=== PATIENT | male | born 1930 | race Caucasian/White ===

== ENCOUNTER → 2016-12-24 | Outpatient (CLI) | payer MEDICARE, BC | END | disposition home or self-care (01) | LOC: GMAM 10:36 | PROVIDERS: ATTEND Family Medicine | DX: Z12.5 Encounter for screening for malignant neoplasm of prostate (principal) ==

== ENCOUNTER → 2017-01-03 | Outpatient (CLI) | payer MEDICARE, BC ==
--- NOTE | 2017-01-04 13:13 | CT ---
EXAM DESCRIPTION: Abdomen t/Pelvis w/o Contrast CLINICAL HISTORY: 86 years, 86 years, Male, Male, ABD PAIN COMPARISON: March 01, 2016. TECHNIQUE: CT of the abdomen and pelvis is performed according to our non contrast protocol This exam was performed according to our departmental dose-optimization program, which includes automated exposure control, adjustment of the mA and/or kV according to patient size and/or use of iterative reconstruction technique. l FINDINGS: The lung bases are clear. A large retrocardiac hiatal hernia and mild basilar fibrotic or atelectatic lung disease is present bilaterally. Benign cyst in the central liver is present with no other gross abnormalities on noncontrast imaging with a small normal spleen noted. The gallbladder is surgically absent and the unenhanced pancreas is normal in appearance. Right kidney is normal in appearance and the left kidney demonstrates an oval approximate 4 cm cyst projecting from the lateral margin with stable minimal calcification, all unchanged from prior study. The adrenal glands and retroperitoneum are normal without mass or adenopathy. The IVC is normal and the aorta has a normal size and contour. The stomach, small and large bowel, peritoneal cavity, mesentery, and abdominal wall are normal. The bladder has no focal mass or stone evident. The pelvis demonstrates no fluid collection or abnormal mass. Moderate prostatic hypertrophy is noted. Age appropriate degenerative changes in the spine and pelvis are noted. A right total hip prosthesis is noted and deformity of the right iliac crest consistent with old injury or surgery is evident with a defect in the right iliac crest with stable herniation of mesenteric or retroperitoneal fat through this defect into the gluteal region but unchanged from prior study. A small fat-containing umbilical hernia is also noted. IMPRESSION: 1. Essentially stable examination in comparison to prior study with large retrocardiac hiatal hernia, benign hepatic cyst and left renal cyst. 2. Old right hip replacement and deformity of the right iliac crest with herniation of retroperitoneal fat through a notch in the iliac crest into the gluteal region but unchanged from 2016. 3. Surgical absence of the gallbladder and mild diverticulosis of the left colon. Electronically signed by: Artemio West MD 01/04/2017 1:12 PM CDT
== END | disposition home or self-care (01) ==
LOC: CT 09:36
PROVIDERS: ATTEND Family Medicine
DX: R10.9 Unspecified abdominal pain (principal)

== ENCOUNTER 2017-02-13 05:50 | Day surgery (SDC) | payer MEDICARE, BC ==
[2017-02-13] MEDS ORDERED: LACTATED RINGERS 1,000 ML ONE (07:00)
[2017-02-13 09:34] VITALS: O2SAT 95
[2017-02-13] MEDS ORDERED: PROPOFOL 200 MG/20 ML VIAL IV ONE (10:00)
[2017-02-13 10:12] VITALS: BP 109/57; TEMP 97.8
--- NOTE | 2017-02-13 10:38 | OP ---
DATE OF PROCEDURE: 02/13/17 PREOPERATIVE DIAGNOSIS: 1. Epigastric pain. POSTOPERATIVE DIAGNOSIS: 1. Large hiatal hernia with reflux. 2. No evidence of Lewis's esophagus or esophagitis. PROCEDURE: 1. Esophagogastroduodenoscopy and biopsy. SURGEON: Colin Sinclair MD. SEDATION: Monitored anesthesia care. FINDINGS: With the patient under sedation, the endoscope was introduced. The posterior pharynx is normal. The proximal esophagus is unremarkable. There is no evidence of Lewis's esophagus or esophagitis. The EG junction is at 30 cm from the gumline. There is a large hiatal hernia present below it. There is no evidence of any axial twist. There is a large hernia pouch. There is no ulceration within the hernia. There is minimal inflammation of the distal antrum. Biopsy obtained to exclude H. pylori. The rest of the stomach is totally normal, pylorus, duodenal bulb, first, second and third part of the duodenum unremarkable. The patient tolerated the procedure well. Normal esophagus inlet. The body of the esophagus unremarkable. EG junction at 40 cm from gumline. No hiatal hernia, ulceration, inflammation, or stricture. Normal cardia, fundus, body, antrum, and pylorus. Biopsy was obtained from the body to exclude gastritis. Clinically, there is no abnormality identified. Duodenal bulb, first, second and third part of the duodenum normal. IMPRESSION: 1. Large hiatal hernia. 2. Probable acid reflux. No accompanying esophagitis. RECOMMENDATION: 1. Antireflux measures. 2. Stay on proton pump inhibitor on daily basis. The patient can use proton pump inhibitor of choice depending on prescription cost. #[id number] cc: Artemio Lara MD [facility]
== END 2017-02-13 10:00 | disposition home or self-care (01) ==
LOC: AMB 05:50
PROVIDERS: ATTEND Internal Medicine Gastroenterology
DX: K21.9 Gastro-esophageal reflux disease without esophagitis (principal); K44.9 Diaphragmatic hernia without obstruction or gangrene; K31.9 Disease of stomach and duodenum, unspecified; I10 Essential (primary) hypertension; E66.9 Obesity, unspecified; Z68.31 Body mass index [BMI] 31.0-31.9, adult; Z79.899 Other long term (current) drug therapy
CPT/HCPCS: 00740; 43239; 88305; 88342; J3490; J7120

== ENCOUNTER 2017-06-23 18:16 | Emergency (ER) | payer MEDICARE, BC ==
[2017-06-23] MEDS ORDERED: KETOROLAC TROMETHAMINE INJ 30 MG/ML VIAL IV ONE (18:48)
--- NOTE | 2017-06-23 18:52 | ED.PDOC ---
History of Present Illness - General Chief Complaint: General Stated Complaint: left hip pain Time Seen by Provider: 06/23/17 18:41 Source: patient, RN notes reviewed, Vital Signs reviewed, family - Exam Limitations: no limitations - History of Present Illness Initial Comments: Patient comes in with c/o L hip and low back pain for 2-3 weeks. Pain is in his low back/lateral hip, across groin and into L testicle. Pain also goes down his left thigh. He did see the [facility] at the clinic who took an X-ray and told him he had arthritis. He did not take the Mobic but Ambrosio has been helping. Pain worsened today, felt like a knife was sticking in his groin. Denies and new/ different urinary symptoms. No change in bowel habits. Timing/Duration: getting worse - over past 2-3 weeks Severity: moderate Improving Factors: medication Worsening Factors: movement Associated Symptoms: denies symptoms Allergies/Adverse Reactions: Allergies NO KNOWN ALLERGY Allergy (Verified 06/23/17 18:41) Home Medications: Ambulatory Orders Ascorbic Acid [Vitamin C] 500 mg PO DAILY 02/01/13 Aspirin [Baby Aspirin] 81 mg PO HS 02/01/13 Calcium 600 mg PO DAILY 02/01/13 Clonazepam 1 mg PO HS 02/01/13 Cobalamine Combinations [B-12 1000 1000-400 Mcg] 1 tab PO DAILY 02/01/13 Dorzolamide HCl-Timolol Maleat [Cosopt] 1 drop BID 02/01/13 Dutasteride [Avodart] 0.5 mg PO DAILY 02/01/13 Escitalopram Oxalate [Lexapro] 10 mg PO DAILY 02/01/13 Glucosamine-Chondroitin [Cosamin Ds] 1 cap PO BID 02/01/13 Latanoprost [Xalatan] 1 drop HS 02/01/13 Metoprolol Succinate [Toprol Xl] 50 mg PO DAILY 02/01/13 Pantoprazole Sodium 40 mg PO DAILY 02/01/13 Vitamins A & D [Vitamin A & D 5000-400 Unit] 1 cap PO DAILY 02/01/13 Acetaminophen W/ Codeine [Tylenol W/ CODEINE #3] 1 ea PO Q6HR PRN #15 06/23/17 Review of Systems - Review of Systems Constitutional: States: no symptoms reported Respiratory: States: no symptoms reported Cardiology: States: no symptoms reported Gastrointestinal/Abdominal: States: no symptoms reported. Denies: abdominal pain, constipation, diarrhea Genitourinary: States: no symptoms reported. Denies: dysuria, frequency, pain Musculoskeletal: States: see HPI, back pain, joint pain - L hip Skin: States: no symptoms reported Neurological: States: no symptoms reported All other Systems: No Change from Baseline Past Medical History (General) - Patient Medical History Hx Seizures: No Hx Stroke: No Hx Asthma: No Hx of COPD: No Hx Cardiac Disorders: Yes Hx Congestive Heart Failure: No Hx Pacemaker: No Hx Hypertension: Yes Hx Diabetes: No Hx MRSA: No Surgical History: cholecystectomy - Vaccination History Hx Influenza Vaccination: Yes Hx Pneumococcal Vaccination: Yes - Social History Hx Tobacco Use: No Hx Alcohol Use: No Hx Substance Use: No Hx Substance Use Treatment: No Hx Depression: No Hx Physical Abuse: No Hx Emotional Abuse: No Family Medical History - Family History Mother Family History: Unknown Physical Exam - Physical Exam General Appearance: Alert, Comfortable, No apparent distress, Well Developed, Well Groomed, Well Hydrated, Well Nourished Respiratory: lungs clear, normal breath sounds, no respiratory distress, no accessory muscle use Cardiovascular/Chest: regular rate, rhythm, no edema, no gallop, no murmur Gastrointestinal/Abdominal: normal bowel sounds, soft, no organomegaly, no pulsatile mass, tenderness - LLQ and Suprapubic w/o guarding or rebound Rectal Exam: deferred Back Exam: normal inspection, no CVA tenderness, no vertebral tenderness Extremity: other - L hip: good ROM but some pain with ROM Neurologic: alert, normal mood/affect, oriented x 3 Skin Exam: normal color, warm/dry Comments: Vital Signs 06/23/17 18:26 Temperature 98.3 F Pulse Rate [ 65 Left Radial] Respiratory 20 Rate Blood Pressure 164/78 [Left Arm] O2 Sat by Pulse 95 Oximetry Progress - Progress Progress: 06/23/17 19:41 UA showed some blood so will get CT scan Patient reports no relief with Toradol. Will give Dilaudid 0.5mg IV 06/23/17 20:[address] shows no renal stone and no acute intra-abdominal process. - Results/Orders Results/Orders: Laboratory Tests 06/23/17 06/23/17 06/23/17 18:56 18:56 19:22 WBC 6.6 RBC 4.01 L Hgb 12.2 L Hct 36.7 L MCV 91.5 MCH 30.4 MCHC 33.3 RDW 15.4 H Plt Count 191 MPV 6.9 L Absolute Neuts (auto) 3.90 Absolute Lymphs (auto) 1.60 Absolute Monos (auto) 0.70 Absolute Eos (auto) 0.20 Absolute Basos (auto) 0.10 Neutrophils % 59.9 Lymphocytes % 24.8 Monocytes % 10.8 H Eosinophils % 3.6 Basophils % 0.9 Sodium 138 Potassium 3.8 Chloride 107 Carbon Dioxide 26 Anion Gap 8.8 L BUN 16 Creatinine 1.22 BUN/Creatinine Ratio 13.1 Random Glucose 104 Serum Osmolality 277.2 Calcium 8.3 L Total Bilirubin 0.4 AST 20 ALT 15 Alkaline Phosphatase 58 Serum Total Protein 5.9 L Albumin 3.2 Globulin 2.7 Albumin/Globulin Ratio 1.2 Urine Color Yellow Urine Appearance Clear Urine pH 6.0 Ur Specific [place] 1.015 Urine Protein Negative Urine Glucose (UA) Negative Urine Ketones Negative Urine Blood Trace-intact H Urine Nitrite Negative Urine Bilirubin Negative Urine Urobilinogen 1.0 Ur Leukocyte Esterase Negative Urine RBC 1-3 Urine WBC 0-1 Ur Epithelial Cells 0-1 Urine Bacteria 0 - EKG/XRAY/CT CT Ordered: Yes - Abd/Pel:No acute findings per Rad Departure - Departure Clinical Impression: Acute pain of left hip Osteoarthritis of left hip Qualifiers: Osteoarthritis type: primary Qualified Code(s): M16.12 - Unilateral primary osteoarthritis, left hip Time of Disposition: 20:43 Disposition: Discharge to Home or Self Care Condition: Good Departure Forms: ED Discharge - Pt. Copy, Patient Portal Self Enrollment Instructions: DI for Arthralgia Diet: resume usual diet Activity: increase activity as tolerated Referrals: Artemio Lara MD [Primary Care Provider] - 1-2 Weeks Prescriptions: Acetaminophen W/ Codeine [Tylenol W/ CODEINE #3] 1 ea PO Q6HR PRN #15 PRN Reason: Moderate To Severe Pain Home Medications: Ambulatory Orders Ascorbic Acid [Vitamin C] 500 mg PO DAILY 02/01/13 Aspirin [Baby Aspirin] 81 mg PO HS 02/01/13 Calcium 600 mg PO DAILY 02/01/13 Clonazepam 1 mg PO HS 02/01/13 Cobalamine Combinations [B-12 1000 1000-400 Mcg] 1 tab PO DAILY 02/01/13 Dorzolamide HCl-Timolol Maleat [Cosopt] 1 drop BID 02/01/13 Dutasteride [Avodart] 0.5 mg PO DAILY 02/01/13 Escitalopram Oxalate [Lexapro] 10 mg PO DAILY 02/01/13 Glucosamine-Chondroitin [Cosamin Ds] 1 cap PO BID 02/01/13 Latanoprost [Xalatan] 1 drop HS 02/01/13 Metoprolol Succinate [Toprol Xl] 50 mg PO DAILY 02/01/13 Pantoprazole Sodium 40 mg PO DAILY 02/01/13 Vitamins A & D [Vitamin A & D 5000-400 Unit] 1 cap PO DAILY 02/01/13 Acetaminophen W/ Codeine [Tylenol W/ CODEINE #3] 1 ea PO Q6HR PRN #15 06/23/17
[2017-06-23] MEDS ORDERED: HYDROmorphone HCL INJ 2 MG/ML VIAL IV ONE (19:41)
--- NOTE | 2017-06-23 20:22 | CT ---
EXAM DESCRIPTION: Abdoment/Pelvis w/o Contrast CLINICAL HISTORY: 86 years Male, Hematuria/L flank pain COMPARISON: 01/03/2017 TECHNIQUE: Contiguous axial CT images of the abdomen and pelvis were acquired without administration of intravenous contrast. Coronal and sagittal reformatted images are provided. This exam was performed according to our departmental dose-optimization program which includes use of Automated Exposure Control, adjustment of the mA and/or kV according to patient size and/or use of iterative reconstruction technique. FINDINGS: Chest base: Scarring or focal atelectasis at the lung bases. Moderate hiatal hernia. Coronary artery calcifications. Liver: Stable low-attenuation lesions of the right hepatic lobe, the larger lesion compatible with a simple cyst. Gallbladder: Surgically absent Spleen: Unremarkable. Adrenals: Unremarkable. Pancreas: Unremarkable. Right Kidney: No renal stones or hydronephrosis. Left Kidney: Partially exophytic cyst arising from the left mid kidney with a small peripheral calcification. No renal stones or hydronephrosis. Aorta and branch vessels: Moderate calcific atherosclerosis of the aortoiliac vessels. Lymph nodes: No lymphadenopathy. Bowels: No obstruction. Colon: Diffuse colonic diverticulosis. Appendix: Not clearly identified Peritoneum: No free air or free fluid. Pelvic organs: Mildly enlarged prostate. Bladder: No bladder stone. Small right bladder diverticulum. Bones and soft tissues: Right hip total arthroplasty. Old fractures of the right hemipelvis. IMPRESSION: No acute intra-abdominal abnormality. No renal stones or hydronephrosis. Moderate-sized hiatal hernia. Diffuse colonic diverticulosis. Electronically signed by: Vernon Schmidt MD 06/23/2017 8:20 PM CDT
[2017-06-23] MEDS ORDERED: ACETAMINOPHEN W/COD #3 TAB (ER Disp) PO ONE (20:43)
[2017-06-23 21:18] VITALS: BP 129/75; TEMP 97.6; O2SAT 91
== END 2017-06-23 21:25 | disposition home or self-care (01) ==
LOC: ER 18:16
DX: M16.12 Unilateral primary osteoarthritis, left hip (principal); I10 Essential (primary) hypertension; Z79.82 Long term (current) use of aspirin; Z79.899 Other long term (current) drug therapy
CPT/HCPCS: 36415; 74176; 80053; 81001; 85025; J1170; J1885

== ENCOUNTER → 2017-06-24 | Outpatient (CLI) | payer MEDICARE, BC ==
--- NOTE | 2017-06-24 12:48 | US ---
EXAM DESCRIPTION: Testicular CLINICAL HISTORY: 86 years Male, SCROTUM PAIN COMPARISON: None. FINDINGS: Testicular sonography with grayscale, color Doppler and spectral pulse Doppler evaluation was performed. The right testis is 3.6 x 2.3 x 2.6 cm and demonstrates normal vascularity. A moderate hydrocele is present. The epididymis is mildly enlarged at 1.1 x 1.6 x 1.2 cm. A bilobed or septated epididymal head cyst measuring 1.1 x 1.0 x 0.9 cm is present. No testicular masses are seen. The left testis is 3.3 x 2.4 x 2.9 cm. A very small hydrocele is present. A small simple 1 cm oval epididymal cyst is noted with the epididymis less prominent measuring 1.1 cm in maximal diameter. IMPRESSION: Moderate right and small left hydrocele with a small amount of debris noted in the left-sided hydrocele. Modest enlargement of the right epididymal head with upper normal range on the left with simple left epididymal head cyst and bilobed 1.1 cm epididymal head cyst on the right. Electronically signed by: Artemio West MD 06/24/2017 12:47 PM CDT
== END | disposition home or self-care (01) ==
LOC: US 11:38
PROVIDERS: ATTEND Physician Assistant
DX: N50.82 Scrotal pain (principal)

== ENCOUNTER → 2017-07-05 | Outpatient (CLI) | payer MEDICARE, BC ==
--- NOTE | 2017-07-06 01:52 | MRI ---
EXAM DATE: 07/05/2017 12:00 AM [employer]. PROCEDURE: MR LUMBAR SPINE WITHOUT IV CONTRAST. INDICATION: SCIATICA. COMPARISON: None. TECHNIQUE: Multiplanar T1 and T2 MRI images of the lumbar spine were acquired without administration of intravenous contrast. FINDINGS: There is minimal 3 mm anterolisthesis of L4 on L5. The lumbar vertebral bodies demonstrate normal height and stature. Hemangiomas are noted within the T12, L1, L2, and L4 vertebral bodies. A hemangioma is noted within the S2 portion of the sacrum as well. Marrow signal is otherwise within normal limits. Mild intervertebral disc space height loss seen throughout the lumbar spine. The conus terminates at the level of L1. The cauda equina nerve roots are unremarkable. The partially visualized thoracic cord is normal. T11-T12: There is a partially evaluated anterior disc bulge with an annular fissure. L1-L2: No significant disc bulge. No spinal canal or neural foraminal narrowing. L2-L3: Disc bulge and ligamentous hypertrophy contributes to mild narrowing of the spinal canal. There is a left subarticular disc extrusion which extends inferiorly along the lateral recess, causing retrodisplacement of the descending left L3 nerve root. Moderate bilateral facet arthropathy at this level without significant foraminal stenosis. 3 mm left synovial cyst. L3-L4: Disc bulge and ligamentous hypertrophy without spinal canal stenosis. Mild bilateral facet arthropathy without foraminal stenosis. L4-L5: Anterolisthesis and mild disc bulge without spinal canal stenosis. There is moderate bilateral facet arthropathy resulting in mild to moderate bilateral foraminal stenosis. L5-S1: No spinal canal stenosis. Moderate bilateral facet arthropathy without significant foraminal stenosis. Probable bilateral parapelvic cysts. The remainder of the partially visualized abdominopelvic organs are unremarkable. 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 There is a left subarticular disc extrusion superimposed on a disc bulge at L2-L3 which causes retrodisplacement of the descending left L3 nerve root. Small left facet synovial cyst. Anterior disc bulge with annular fissure at T11-T12 may contribute to pain. Mild/moderate bilateral foraminal stenosis at L4-L5. No high-grade spinal canal stenosis. Electronically signed by: Vernon Schmidt MD 07/06/2017 1:51 AM [facility]
== END | disposition home or self-care (01) ==
LOC: MRI 10:47
PROVIDERS: ATTEND Physician Assistant
DX: M54.32 Sciatica, left side (principal)

== ENCOUNTER 2017-11-22 22:54 | Emergency (ER) | payer MEDICARE, BC ==
--- NOTE | 2017-11-22 23:33 | ED.PDOC ---
History of Present Illness - General Chief Complaint: GI Problem Stated Complaint: black tarry stool Time Seen by Provider: 11/22/17 23:30 Information Source: patient, family Exam Limitations: no limitations - History of Present Illness Abdominal Pain Onset Location: RLQ, LLQ Pain Radiation: no radiation Quality: cramping, waxing/waning Timing/Duration: days - 3 days Improving Factors: nothing Worsening Factors: nothing Associated Symptoms: diarrhea, fatigue, weakness Review of Systems - Review of Systems Constitutional: States: weakness EENTM: States: no symptoms reported Respiratory: Denies: short of breath Cardiology: Denies: chest pain Gastrointestinal/Abdominal: States: abdominal pain, diarrhea. Denies: vomiting Genitourinary: States: no symptoms reported Musculoskeletal: States: no symptoms reported Skin: States: no symptoms reported Neurological: States: no symptoms reported Endocrine: States: no symptoms reported Hematologic/Lymphatic: States: no symptoms reported Past Medical History (General) - Patient Medical History Hx Seizures: No Hx Stroke: No Hx Asthma: No Hx of COPD: No Hx Cardiac Disorders: Yes Hx Congestive Heart Failure: No Hx Pacemaker: No Hx Hypertension: Yes Hx Diabetes: No Hx Gastroesophageal Reflux: Yes Hx MRSA: No Surgical History: appendectomy, cholecystectomy, other - Vaccination History Hx Tetanus, Diphtheria Vaccination: No Hx Influenza Vaccination: Yes Hx Pneumococcal Vaccination: Yes - Social History Hx Tobacco Use: No Hx Alcohol Use: No Hx Substance Use: No Hx Substance Use Treatment: No Hx Depression: No Hx Physical Abuse: No Hx Emotional Abuse: No Family Medical History - Family History Mother Family History: Unknown Physical Exam - Physical Exam General Appearance: Alert, Anxious Eyes, Ears, Nose, Throat Exam: PERRL/EOMI Neck: non-tender, supple Respiratory: lungs clear, normal breath sounds, no respiratory distress Cardiovascular/Chest: regular rate, rhythm, no edema Gastrointestinal/Abdominal: normal bowel sounds, soft, tenderness - diffusely but mostly in both lower quads without guarding or rebound Rectal Exam: black stool, heme positive stool, tenderness Extremity: non-tender, no pedal edema Neurologic: no motor/sensory deficits, alert, normal mood/affect, oriented x 3 Skin Exam: normal color, warm/dry Lymphatic: no adenopathy Departure - Departure Clinical Impression: Upper GI bleed Disposition: Transfer to Hospital Condition: Fair Departure Forms: ED Discharge - Pt. Copy, Patient Portal Self Enrollment Referrals: Artemio Lara MD [Primary Care Provider] - 1-2 Weeks Home Medications: Ambulatory Orders Ascorbic Acid [Vitamin C] 500 mg PO DAILY 02/01/13 Aspirin [Baby Aspirin] 81 mg PO HS 02/01/13 Calcium 600 mg PO DAILY 02/01/13 Clonazepam 1 mg PO HS 02/01/13 Cobalamine Combinations [B-12 1000 1000-400 Mcg] 1 tab PO DAILY 02/01/13 Dorzolamide HCl-Timolol Maleat [Cosopt] 1 drop BID 02/01/13 Dutasteride [Avodart] 0.5 mg PO DAILY 02/01/13 Escitalopram Oxalate [Lexapro] 10 mg PO DAILY 02/01/13 Glucosamine-Chondroitin [Cosamin Ds] 1 cap PO BID 02/01/13 Latanoprost [Xalatan] 1 drop HS 02/01/13 Metoprolol Succinate [Toprol Xl] 50 mg PO DAILY 02/01/13 Pantoprazole Sodium 40 mg PO DAILY 02/01/13 Vitamins A & D [Vitamin A & D 5000-400 Unit] 1 cap PO DAILY 02/01/13 Acetaminophen W/ Codeine [Tylenol W/ CODEINE #3] 1 ea PO Q6HR PRN #15 06/23/17 Transfer to Outside Facility - Transfer Information Accepting Facility: [facility] Reason for Transfer: required specialist not available
[2017-11-22] MEDS ORDERED: PANTOPRAZOLE SODIUM IV 40 MG VIAL IV ONE (23:37)
[2017-11-22] MEDS ORDERED: SODIUM CHLORIDE 0.9% 500ML 500 ML IVS ONE (23:37)
[2017-11-23] MEDS ORDERED: SODIUM CHLORIDE 0.9% 500ML 500 ML IVS ONE (00:34)
[2017-11-23 00:51] VITALS: BP 127/71; TEMP 98.4; O2SAT 95
== END 2017-11-23 01:20 | disposition short-term general hospital (02) ==
LOC: ER 22:54
DX: K92.2 Gastrointestinal hemorrhage, unspecified (principal); I10 Essential (primary) hypertension; K21.9 Gastro-esophageal reflux disease without esophagitis; Z79.899 Other long term (current) drug therapy; Z79.82 Long term (current) use of aspirin
CPT/HCPCS: 36415; 80053; 82270; 83690; 85025; 85610; 85730; J7040

== ENCOUNTER 2018-01-12 12:33 | Emergency (ER) | payer MEDICARE, BC ==
[2018-01-12 12:50] VITALS: O2SAT 96
--- NOTE | 2018-01-12 12:57 | ED.PDOC ---
History of Present Illness - General Chief Complaint: Trauma Stated Complaint: S/P fall, abd pain Time Seen by Provider: 01/12/18 12:52 Source: patient, family Additional Information: 87 YEAR OLD BROUGHT HERE BY FAMILY FOR EVALUATION OF A F[facility] THIS MORNING TRIPPED WALKING DOWN AND HAS HAD NO INJURY WAS ABLE TO GET UP AND WALK HE HAD SURGERYCOLON RESECTION STAGE 11 CANCER IN NOVEMBER 2017 HE HAS BEEN HAVING LITTLE CONSTIPATION BUT NO VOMITING FAIL APPITITE HAS HISTORY OF WEIGHT LOSS 30 LBS SINCE NOVEMBER HE DID NOT EAT BREAKFAST TOOK HIS PILLS HE HAS NO CHEST PAIN NO ABDOMINAL PAIN NO SHORTNESS OF BREATH NO SYNCOPY HE HAS NO GI BLEED AT TIS TIME - History of Present Illness Timing/Duration: momentarily Severity: mild Improving Factors: nothing Associated Symptoms: denies symptoms Allergies/Adverse Reactions: Allergies NO KNOWN ALLERGY Allergy (Verified 06/23/17 18:41) Home Medications: Ambulatory Orders Ascorbic Acid [Vitamin C] 500 mg PO DAILY 02/01/13 Aspirin [Baby Aspirin] 81 mg PO HS 02/01/13 Calcium 600 mg PO DAILY 02/01/13 Clonazepam 1 mg PO HS 02/01/13 Cobalamine Combinations [B-12 1000 1000-400 Mcg] 1 tab PO DAILY 02/01/13 Dorzolamide HCl-Timolol Maleat [Cosopt] 1 drop BID 02/01/13 Dutasteride [Avodart] 0.5 mg PO DAILY 02/01/13 Escitalopram Oxalate [Lexapro] 10 mg PO DAILY 02/01/13 Glucosamine-Chondroitin [Cosamin Ds] 1 cap PO BID 02/01/13 Latanoprost [Xalatan] 1 drop HS 02/01/13 Metoprolol Succinate [Toprol Xl] 50 mg PO DAILY 02/01/13 Pantoprazole Sodium 40 mg PO DAILY 02/01/13 Vitamins A & D [Vitamin A & D 5000-400 Unit] 1 cap PO DAILY 02/01/13 Acetaminophen W/ Codeine [Tylenol W/ CODEINE #3] 1 ea PO Q6HR PRN #15 06/23/17 Review of Systems - Review of Systems Constitutional: States: weakness EENTM: States: no symptoms reported Respiratory: States: no symptoms reported Cardiology: States: no symptoms reported Gastrointestinal/Abdominal: States: no symptoms reported Genitourinary: States: no symptoms reported Musculoskeletal: States: no symptoms reported Skin: States: no symptoms reported Neurological: States: no symptoms reported Endocrine: States: no symptoms reported Hematologic/Lymphatic: States: no symptoms reported Past Medical History (General) - Patient Medical History Hx Seizures: No Hx Stroke: No Hx Asthma: No Hx of COPD: No Hx Cardiac Disorders: Yes Hx Congestive Heart Failure: No Hx Pacemaker: No Hx Hypertension: Yes Hx Diabetes: No Hx Gastroesophageal Reflux: Yes Hx Cancer: Yes - Colon Hx MRSA: No Surgical History: appendectomy, cholecystectomy, colectomy - Vaccination History Hx Tetanus, Diphtheria Vaccination: No Hx Influenza Vaccination: Yes - 05/2017 Hx Pneumococcal Vaccination: Yes - 05/2017 - Social History Hx Tobacco Use: No Hx Alcohol Use: No Hx Substance Use: No Hx Substance Use Treatment: No Hx Depression: No Hx Physical Abuse: No Hx Emotional Abuse: No Family Medical History - Family History Mother Family History: Unknown Physical Exam - Physical Exam General Appearance: Alert, Comfortable Eye Exam: bilateral normal Ears, Nose, Throat: hearing grossly normal, normal ENT inspection, normal pharynx, abnormal TM (R) Neck: non-tender, full range of motion, supple Respiratory: chest non-tender, lungs clear, normal breath sounds, no respiratory distress, no accessory muscle use Cardiovascular/Chest: normal peripheral pulses, regular rate, rhythm, no edema, no gallop, no JVD, no murmur Peripheral Pulses: radial,right: 2+, radial,left: 2+, femoral,right: 2+, femoral ,left: 2+ Back Exam: normal inspection, no CVA tenderness, no vertebral tenderness, CVA tenderness (R) Extremity: normal range of motion, non-tender, normal inspection, no pedal edema Neurologic: protection [employer] II-XII nml as tested, no motor/sensory deficits, alert, normal mood/affect, oriented x 3 DTR: 2+: Biceps, left, Biceps, right, Achilles, right, Patellar, left Skin Exam: normal color, warm/dry Departure - Departure Clinical Impression: Fall, Stage II carcinoma of colon Disposition: Discharge to Home or Self Care Departure Forms: ED Discharge - Pt. Copy, Patient Portal Self Enrollment Instructions: DI for Trauma Referrals: Artemio Lara MD [Primary Care Provider] - 1-2 Weeks Home Medications: Ambulatory Orders Ascorbic Acid [Vitamin C] 500 mg PO DAILY 02/01/13 Aspirin [Baby Aspirin] 81 mg PO HS 02/01/13 Calcium 600 mg PO DAILY 02/01/13 Clonazepam 1 mg PO HS 02/01/13 Cobalamine Combinations [B-12 1000 1000-400 Mcg] 1 tab PO DAILY 02/01/13 Dorzolamide HCl-Timolol Maleat [Cosopt] 1 drop BID 02/01/13 Dutasteride [Avodart] 0.5 mg PO DAILY 02/01/13 Escitalopram Oxalate [Lexapro] 10 mg PO DAILY 02/01/13 Glucosamine-Chondroitin [Cosamin Ds] 1 cap PO BID 02/01/13 Latanoprost [Xalatan] 1 drop HS 02/01/13 Metoprolol Succinate [Toprol Xl] 50 mg PO DAILY 02/01/13 Pantoprazole Sodium 40 mg PO DAILY 02/01/13 Vitamins A & D [Vitamin A & D 5000-400 Unit] 1 cap PO DAILY 02/01/13 Acetaminophen W/ Codeine [Tylenol W/ CODEINE #3] 1 ea PO Q6HR PRN #15 06/23/17
[2018-01-12] MEDS ORDERED: CHLORHEXIDINE GLUCONATE 4 % 15 ML UD TOP ONE (13:03)
[2018-01-12] MEDS ORDERED: NEOMYCIN-BACITRACIN-POLYMYXIN 0.9 GM UD TOP ONE (13:03)
[2018-01-12 13:26] VITALS: BP 95/60; TEMP 98.2
== END 2018-01-12 13:26 | disposition home or self-care (01) ==
LOC: ER 12:33
DX: Z04.3 Encounter for examination and observation following other accident (principal); C18.9 Malignant neoplasm of colon, unspecified; I10 Essential (primary) hypertension; K21.9 Gastro-esophageal reflux disease without esophagitis; Z91.81 History of falling; Z79.899 Other long term (current) drug therapy

== ENCOUNTER → 2018-01-21 | Outpatient (CLI) | payer MEDICARE, BC | LOC: GMAM 11:19 | PROVIDERS: ATTEND Family Medicine | DX: Z12.5 Encounter for screening for malignant neoplasm of prostate (principal) ==

== ENCOUNTER → 2018-01-24 | Outpatient (CLI) | payer MEDICARE, BC ==
--- NOTE | 2018-01-24 17:09 | MRI ---
EXAM DESCRIPTION: Brain w/wo Contrast: Magnetic Resonance Imaging. CLINICAL HISTORY: ABNORMAL GAIT COMPARISON: MRI scan of the brain without and with gadolinium IV contrast 01/06/2014. TECHNIQUE: Multiplanar, high-field MRI, multiple conventional sequences, without and with gadolinium IV contrast. No adverse reactions. Multiple axial diffusion sequences. FINDINGS: Bilateral symmetric small foci and bands of hyperintense FLAIR and T2-weighted signal in the periventricular white matter and layne-white matter junctions of the cerebral hemispheres. . 1 asymmetric lesion in the junction of the left posterior parietal white matter and anterior left occipital white matter shows enhancement without mass effect hemorrhage or diffusion restriction. Normal signal bilateral basal ganglia. No hemorrhage, no cerebral edema, no mass-effect. Normal contrast enhancement. Normal signal in the brainstem and cerebellar hemispheres. No hemorrhage, no cerebral edema, no mass-effect. Normal contrast enhancement. Concordance of the diffusion and non-diffusion sequences with no evidence of acute or subacute infarction. Cortical sulci, ventricles, and other CSF spaces, and the subdural spaces are normally configured for patients age. No effacement or displacement. No midline shift. No extra-axial hemorrhage. Normal contrast enhancement. Normal flow signal void in the major vessels of the [place], and the venous sinuses. IACs are symmetric bilaterally. Bilateral inflammatory edema and fluid in the mastoid air cells. No mass effect in the bilateral Cerebellopontine angles. Normal contrast enhancement. Pituitary gland occupies most of the sella. Normal contrast enhancement. Base of the cerebellar tonsils is above the foramen magnum. Diffuse mucoperiosteal thickening in the bilateral maxillary antra with possible fluid on the right. Also mucoperiosteal thickening in the bilateral ethmoid air cells with septal deviation . The bony calvarium is intact. IMPRESSION: 1. Periventricular white matter hyperintensities hyperintensities in the layne-white matter junctions bilaterally slightly more prominent than on the prior study. An asymmetric lesion posterior left parietal lobe was seen previously but now demonstrates minimal enhancement. This is suggestive of an active demyelinating lesion or focal inflammatory process. Tumoral enhancement is unlikely. No hemorrhage, mass effect, or diffusion restriction. Other white matter abnormalities are most likely related to progressive cerebral microvascular disease. 2. No diffusion restriction in the study with acute or subacute infarction unlikely. 3. Diffuse paranasal sinusitis and extensive bilateral mastoiditis. Electronically signed by: Santiago Ronquillo MD 01/24/2018 5:08 PM CDT
== END ==
LOC: MRI 08:58
PROVIDERS: ATTEND Family Medicine
DX: R26.9 Unspecified abnormalities of gait and mobility (principal); J01.80 Other acute sinusitis

== ENCOUNTER → 2018-03-21 | Outpatient (CLI) | payer MEDICARE, BC ==
--- NOTE | 2018-03-21 20:38 | CT ---
CLINICAL HISTORY: 87 years Male, CHRONIC PANSINUSITIS COMPARISON: None. TECHNIQUE: Spiral, axial 2.5 mm scans through the paranasal sinuses without contrast. Coronal and sagittal 2.0 mm reconstructions. Axial, helical 2.5 mm reconstruction using bone algorithm. Total Exam DLP: 301.96 mGy-cm. This exam was performed according to our departmental CT dose-optimization program which includes automated exposure control, adjustment of the mA and/or kV according to patient size and/or use of iterative reconstruction technique; to reduce radiation dose to as low as reasonably achievable (ALARA). FINDINGS: Soft tissues involving most of the right maxillary antrum with air bubbles and minimal fluid. Minimal mucoperiosteal thickening in the left antrum. The right ostiomeatal unit is obstructed. Narrowing of the ostia of the left ostiomeatal unit. Sphenoid and frontal sinuses are well aerated. Sphenoid nasal ostia are bilaterally patent. Mucoperiosteal thickening bilateral anterior ethmoid air cells. Thickening of the turbinate mucosal hypertrophy bilaterally. No septal spur inferiorly narrowing the left nasal passageway. Anterior left septal deviation. Anterior nasal bones and anterior maxillary spine are intact. Multiple bilateral mastoid air cells containing soft tissue or fluid. Bilateral internal auditory ossicles grossly normal with fluid in the right tympanic cavity but not in the left. Bilateral tympanic membranes may be thickened. IMPRESSION: 1. Acute and chronic sinusitis in the right maxillary antrum. Obstruction of the right ostiomeatal unit. Narrowing of the ostium on the left ostiomeatal unit. Minimal chronic changes in the left antrum. Chronic sinusitis ethmoid air cells bilaterally. Frontal and sphenoid sinuses are well aerated. 2. Narrowing of the left nasal passageway by septal spur posteriorly and anterior deviation. 3. Bilateral multiple mastoid air cells contain fluid or soft tissue. Fluid in the right tympanic cavity. Bilateral tympanic membranes are thickened. Consider dedicated CT scan or MRI scan of the temporal bones with sagittal and coronal reconstructions. Electronically signed by: Santiago Ronquillo MD 03/21/2018 8:37 PM CDT
== END ==
LOC: CT 09:30
PROVIDERS: ATTEND Otolaryngology
DX: J32.4 Chronic pansinusitis (principal); H65.02 Acute serous otitis media, left ear; J34.89 Other specified disorders of nose and nasal sinuses

== ENCOUNTER → 2018-04-24 | Outpatient (CLI) | payer MEDICARE, BC | LOC: GMAM 17:10 | PROVIDERS: ATTEND Family Medicine | DX: C18.9 Malignant neoplasm of colon, unspecified (principal); D64.9 Anemia, unspecified ==

== ENCOUNTER → 2018-05-29 | Outpatient (CLI) | payer MEDICARE, BC | LOC: GMAJS 10:55 | PROVIDERS: ATTEND Physician Assistant | DX: R30.0 Dysuria (principal) ==

== ENCOUNTER → 2018-06-05 | Outpatient (CLI) | payer MEDICARE, BC ==
--- NOTE | 2018-06-06 08:54 | MRI ---
EXAM DESCRIPTION: Lumbar Spine w/o Contrast : Magnetic Resonance Imaging. CLINICAL HISTORY: LOW BACK PAIN COMPARISON: MRI scan lumbar spine 07/05/2017. TECHNIQUE: Multiplanar, multiple standard sequences, non contrast MRI, lumbar spine. FINDINGS: L5-S1: Minimal disc desiccation. Minimal arthrosis in the bilateral facets with ligament hypertrophy. Canal is patent. Anterior Modic type II endplate reactive changes. Bilateral foramina are mildly narrowed. Stable since the prior study. L4-5: Disc desiccation with posterior disc space loss. Anterior disc bulge with annular fissure. 3 mm grade 1 anterolisthesis. No posterior disc bulge. Minimal facet arthrosis bilaterally and flavum ligament hypertrophy. Mild canal narrowing. Mild foraminal narrowing bilaterally. Circumscribed hyperintense T1 and T2 signal in the L4 vertebral body. Stable since the prior study. L3-4: Disc desiccation with disc space preserved. Tiny posterior bulge. Bilateral anterior disc bulge. Bilateral flavum ligament hypertrophy. Mild canal narrowing. Bilateral foramina are patent. L2-3: Disc desiccation and minimal disc space loss. Posterior broad-based 4 mm disc bulge. Left facet arthrosis and bilateral flavum ligament hypertrophy. Mild to moderate canal narrowing. Anterior Modic type II endplate reactive changes. 5 mm retrolisthesis. Left posterior 8 mm disc protrusion abutting the thecal sac and extruding inferiorly effacing the subarticular recess and displacing the descending left L3 nerve. Stable since the prior study. Disc also bulging into the left foramen which is moderately narrowed. Mild right foraminal narrowing. Large circumscribed hyperintense right L2 vertebral body lesion T1 and T2 sequences stable since the prior study. L1-2: Normal signal in the disc with disc space preserved. No bulging with canal patent. Posterior elements unremarkable. Bilateral foramina are patent. Circumscribed hyperintense T1 and T2 signal in the right L1 vertebral body unchanged since the prior study. T12-L1: Normal signal in the disc with disc space preserved. Small anterior bulge. Posterior elements unremarkable. Canal and foramina are patent. Anterior right side disc osteophyte bulge. Conus terminates at this level. Circumscribed hyperintense T1 and T2 signal in the right T12 vertebral body extending into the pedicle. Stable since the prior study. Anatomic curvature of the spine. Paravertebral soft tissues demonstrate muscle atrophy. Normal marrow signal in the remaining vertebral bodies and the posterior elements. Vertebral bodies are not compressed at any level. IMPRESSION: 1. 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 Stable since the prior study. Left paracentral mild canal stenosis. Left foraminal narrowing. 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 2. Large hemangiomas in the right T12-L1 vertebral body and pedicle and the right L1 vertebral body. Smaller hemangiomas in the L5 and L4 vertebral bodies. These are stable since the prior study. Anterolisthesis L4-5 and retrolisthesis L2-3, no change since the prior study. Electronically signed by: Santiago Ronquillo MD 06/06/2018 8:53 AM CDT
== END ==
LOC: MRI 09:00
PROVIDERS: ATTEND Physician Assistant
DX: M51.26 Other intervertebral disc displacement, lumbar region (principal); D18.09 Hemangioma of other sites; M43.16 Spondylolisthesis, lumbar region

== ENCOUNTER → 2018-10-28 | Outpatient (CLI) | payer MEDICARE, BC ==
--- NOTE | 2018-10-28 16:39 | US ---
EXAM DESCRIPTION: Extremity,Lower Noah Arteries: Ultrasound. CLINICAL HISTORY: PVD COMPARISON: None. TECHNIQUE: Doppler evaluation of the bilateral lower extremity arterial flow waveforms and velocities. FINDINGS: Arterial waveforms in the right lower extremity are triphasic and biphasic. Arterial waveforms in the left lower extremity are triphasic and biphasic. Comments: No abnormally low or elevated velocities. IMPRESSION: Duplex ultrasound evaluation of the bilateral lower extremity arterial systems showing no evidence of significant atherosclerotic occlusive disease. Electronically signed by: Santiago Ronquillo MD 10/28/2018 4:35 PM [employer]GE[employer]
== END ==
LOC: US 11:05
PROVIDERS: ATTEND Family Medicine
DX: I73.9 Peripheral vascular disease, unspecified (principal)

== ENCOUNTER → 2018-12-19 | Outpatient (CLI) | payer MEDICARE, BC ==
--- NOTE | 2018-12-19 15:35 | CT ---
EXAM DESCRIPTION: CT ABDOMEN AND PELVIS WITH CONTRAST CLINICAL HISTORY: Malignant neoplasm of cecum COMPARISON: None Available. TECHNIQUE: CT of the abdomen and pelvis are performed during IV bolus administration of routine adult dose of nonionic iodinated IV contrast. No oral contrast. FINDINGS: In the lower chest, mild linear scarring in the lung bases bilaterally. Heart size is prominent with positive coronary arterial calcification. Large hiatal hernia behind the heart. CT abdomen Tiny left renal calculus without hydronephrosis. Benign appearing cyst extends laterally from the mid left kidney. Mild senescent renal cortical thinning bilaterally. Small cysts in the liver appear benign. Surgical changes of previous right hemicolectomy. No abdominal mass or adenopathy to suggest recurrent or metastatic malignancy. Previous study was performed the surgery and the colonic wall appeared thickened in the region of the hepatic flexure or proximal transverse colon which may have been the site of primary tumor. The liver, spleen, pancreas, gallbladder, adrenal glands, stomach and kidneys are otherwise unremarkable in appearance. No inflammation around the pancreas. No renal stones or hydronephrosis. No bowel dilatation to suggest obstruction. Minimal ventral herniation of fat at the umbilical level. No free air or free fluid. Delayed postcontrast images show positive accumulation of contrast in the urinary collecting systems with a few small parapelvic cysts. Upper right lobe of the liver protrudes into the lower right chest beneath right dale-diaphragmatic eventration. CT pelvis Appendix appears normal. No inflammation around the sigmoid colon. There is extensive sigmoid diverticulosis. Bladder and distal ureters are negative for stones. Normal enhancement of pelvic vessels. No inguinal or lower pelvic adenopathy. Prostate is large measuring 5.2 cm in transverse dimension with moderate invagination of the bladder base and right bladder diverticulum with mild bladder wall muscular thickening.. Right hip arthroplasty metal artifacts mildly limited evaluation of the lower pelvis. Bone window images are negative for fracture or lytic lesion. Coronal and sagittal reformatted images confirm the findings. IMPRESSION: Status post right colectomy. Negative for evidence of abdominal or pelvic metastatic disease. This exam was performed according to our departmental dose-optimization program, which includes automated exposure control, adjustment of the mA and/or kV according to patient size and/or use of iterative reconstruction technique. Total DLP equals 2107.27 mGycm. Electronically signed by: Rangel Ribeiro MD 12/19/2018 3:33 PM CDT
== END ==
LOC: CT 09:00
PROVIDERS: ATTEND Internal Medicine Hematology & Oncology
DX: C18.0 Malignant neoplasm of cecum (principal); Z90.49 Acquired absence of other specified parts of digestive tract

== ENCOUNTER 2019-03-06 23:42 | Emergency (ER) | payer MEDICARE, BC ==
[2019-03-06 23:58] VITALS: TEMP 97.5
[2019-03-07] MEDS ORDERED: SODIUM CHLORIDE 0.9% 1000ML 1,000 ML IVS ONE (00:04)
[2019-03-07] MEDS ORDERED: ONDANSETRON ODT 8 MG TAB SL ONE (00:04)
--- NOTE | 2019-03-07 00:10 | ED.PDOC ---
History of Present Illness - General Chief Complaint: GI Problem Stated Complaint: N/V/D LAST SEVERAL DAYS BUT BETTER TODAY JUST WEAK Time Seen by Provider: 03/07/19 00:03 Information Source: patient, family Exam Limitations: no limitations - History of Present Illness Initial Comments: patient comes in with his for nausea, vomiting, and diarrhea. His began getting sick on Saturday and then he began getting sick on Saturday. Patient's had nausea vomiting and large amounts of clear diarrhea and chills. Patient states he is a little bit better today but still just not feeling well. He's had no cough or cold symptoms. They've had no questionable by mouth intake or recent travel. Patient denies any overt abdominal pain. Patient does feel quite weak today and they were concerned that it was taking so long to get better. Abdominal Pain Onset Location: generalized abdomen Pain Radiation: no radiation Quality: mild, cramping Timing/Duration: days - 3 Improving Factors: nothing Worsening Factors: eating Associated Symptoms: diarrhea, fever/chills, nausea/vomiting Review of Systems - Review of Systems Constitutional: States: chills, weakness EENTM: States: no symptoms reported. Denies: eye pain, ear pain, nose congestion, throat pain Respiratory: States: no symptoms reported. Denies: cough, short of breath Cardiology: States: no symptoms reported. Denies: chest pain, edema, palpitations Gastrointestinal/Abdominal: States: see HPI, diarrhea, nausea, vomiting Genitourinary: States: no symptoms reported. Denies: discharge, frequency, hematuria Past Medical History (General) - Patient Medical History Hx Seizures: No Hx Stroke: No Hx Asthma: No Hx of COPD: No Hx Cardiac Disorders: Yes Hx Congestive Heart Failure: No Hx Pacemaker: No Hx Hypertension: Yes Hx Diabetes: No Hx Gastroesophageal Reflux: Yes Hx Cancer: Yes - Colon Hx MRSA: No - Vaccination History Hx Tetanus, Diphtheria Vaccination: No Hx Influenza Vaccination: Yes - 05/2017 Hx Pneumococcal Vaccination: Yes - 05/2017 - Social History Hx Tobacco Use: No Hx Alcohol Use: No Hx Substance Use: No Hx Substance Use Treatment: No Hx Depression: No Hx Physical Abuse: No Hx Emotional Abuse: No Family Medical History - Family History Mother Family History: Unknown Physical Exam - Physical Exam General Appearance: Alert, Comfortable, No apparent distress Eyes, Ears, Nose, Throat Exam: PERRL/EOMI, normal ENT inspection, TMs normal, pharynx normal Neck: non-tender, full range of motion, supple, normal inspection Respiratory: chest non-tender, lungs clear, normal breath sounds, no respiratory distress Cardiovascular/Chest: normal peripheral pulses, regular rate, rhythm, no edema, no murmur Gastrointestinal/Abdominal: normal bowel sounds, non tender, soft, no organomegaly, no pulsatile mass Neurologic: alert, oriented x 3 Progress - Results/Orders Results/Orders: 03/07/19 00:04 Sodium Chloride 0.9% 1000ML [Ns 1000 ml] 1,000 ml IVS ONCE Laboratory Results WBC 4.1 K/mm3 (4.8-10.8) L 03/07/19 00:04 RBC 3.96 M/mm3 (4.70-6.10) L 03/07/19 00:04 Hgb 13.0 gm/dL (14.0-18.0) L 03/07/19 00:04 Hct 38.4 % (42.0-52.0) L 03/07/19 00:04 MCV 96.8 fl (80.0-94.0) H 03/07/19 00:04 MCH 32.8 pg (27.0-31.0) H 03/07/19 00:04 MCHC 33.9 g/dL (33.0-37.0) 03/07/19 00:04 RDW 14.5 % (11.5-14.5) 03/07/19 00:04 Plt Count 134 K/mm3 (130-400) 03/07/19 00:04 MPV 7.1 fl (7.40-10.4) L 03/07/19 00:04 Absolute Neuts (auto) 2.60 K/uL (1.8-6.8) 03/07/19 00:04 Absolute Lymphs (auto) 0.70 K/uL (1.0-3.4) L 03/07/19 00:04 Absolute Monos (auto) 0.70 K/uL (0.2-0.8) 03/07/19 00:04 Absolute Eos (auto) 0.00 K/uL (0.0-0.4) 03/07/19 00:04 Absolute Basos (auto) 0.00 K/uL (0.0-0.1) 03/07/19 00:04 Neutrophils % 63.8 % (42.0-78.0) 03/07/19 00:04 Lymphocytes % 17.7 % (20.0-50.0) L 03/07/19 00:04 Monocytes % 17.6 % (2.0-9.0) H 03/07/19 00:04 Eosinophils % 0.3 % (1.0-5.0) L 03/07/19 00:04 Basophils % 0.6 % (0.0-2.0) 03/07/19 00:04 Sodium 138 mmol/L (135-145) 03/07/19 00:04 Potassium 3.8 mmol/L (3.6-5.0) 03/07/19 00:04 Chloride 108 mmol/L (101-111) 03/07/19 00:04 Carbon Dioxide 22 mmol/L (21-31) 03/07/19 00:04 Anion Gap 11.8 (12-18) L 03/07/19 00:04 BUN 29 mg/dL (7-18) H 03/07/19 00:04 Creatinine 1.33 mg/dL (0.6-1.3) H 03/07/19 00:04 BUN/Creatinine Ratio 21.8 (10-20) H 03/07/19 00:04 Random Glucose 114 mg/dL (70-105) H 03/07/19 00:04 Serum Osmolality 282.4 mOsm/L (275-295) 03/07/19 00:04 Calcium 8.1 mg/dL (8.4-10.2) L 03/07/19 00:04 Total Bilirubin 0.6 mg/dL (0.2-1.0) 03/07/19 00:04 AST 27 IU/L (10-42) 03/07/19 00:04 ALT 19 IU/L (10-60) 03/07/19 00:04 Alkaline Phosphatase 54 IU/L (42-121) 03/07/19 00:04 Serum Total Protein 6.7 gm/dL (6.4-8.2) 03/07/19 00:04 Albumin 3.5 g/dl (3.2-5.5) 03/07/19 00:04 Globulin 3.2 gm/dL (2.3-3.5) 03/07/19 00:04 Albumin/Globulin Ratio 1.1 (1.1-1.9) 03/07/19 00:04 Departure - Departure Clinical Impression: Gastroenteritis Disposition: Discharge to Home or Self Care Condition: Fair Departure Forms: ED Discharge - Pt. Copy, Patient Portal Self Enrollment Referrals: Artemio Lara MD [Primary Care Provider] - 1-2 Weeks Prescriptions: Ondansetron Odt [Zofran ODT] 8 mg PO Q8HRS PRN #10 tab PRN Reason: Nausea Home Medications: Ambulatory Orders Ascorbic Acid [Vitamin C] 500 mg PO DAILY 02/01/13 Aspirin [Baby Aspirin] 81 mg PO HS 02/01/13 Calcium 600 mg PO DAILY 02/01/13 Cobalamine Combinations [B-12 1000 1000-400 Mcg] 1 tab PO DAILY 02/01/13 Metoprolol Succinate [Toprol Xl] 50 mg PO DAILY 02/01/13 Pantoprazole Sodium 40 mg PO DAILY 02/01/13 Vitamins A & D [Vitamin A & D 5000-400 Unit] 1 cap PO DAILY 02/01/13 Lisinopril 20 mg PO DAILY 03/06/19 Ondansetron Odt [Zofran ODT] 8 mg PO Q8HRS PRN #10 tab 03/07/19 Additional Instructions: return to clinic/return to ER for intractable emesis, increasing pain, slow return to normal diet. Follow-up on Saturday with PCP in the clinic
[2019-03-07 01:04] VITALS: O2SAT 93
[2019-03-07 01:28] VITALS: BP 145/68
== END 2019-03-07 01:21 | disposition home or self-care (01) ==
LOC: ER 23:42
DX: K52.9 Noninfective gastroenteritis and colitis, unspecified (principal); I51.9 Heart disease, unspecified; I10 Essential (primary) hypertension; K21.9 Gastro-esophageal reflux disease without esophagitis; Z85.038 Personal history of other malignant neoplasm of large intestine
CPT/HCPCS: 36415; 80053; 85025; J7030

== ENCOUNTER → 2019-03-30 | Outpatient (CLI) | payer MEDICARE, BC | LOC: LAB.O 10:26 | PROVIDERS: ATTEND Family Medicine | DX: R19.7 Diarrhea, unspecified (principal) ==

== ENCOUNTER 2019-04-15 07:00 | Day surgery (SDC) | payer MEDICARE, BC ==
[~2019-04-15 07:00] MED LIST: PROPOFOL 200 MG/20 ML VIAL IV ONE
[2019-04-15] MEDS ORDERED: LACTATED RINGERS 1,000 ML ONE (07:36)
[2019-04-15] MEDS ORDERED: MIDAZOLAM INJ 2 MG/2 ML VIAL ONE (07:44)
[2019-04-15] MEDS ORDERED: LACTATED RINGERS 1,000 ML IVS ONE (07:45)
--- NOTE | 2019-04-15 10:49 | OP ---
DATE OF PROCEDURE: 04/15/19 PREOPERATIVE DIAGNOSIS: 1. Personal history of colon cancer, diagnosis was made in November 2017. POSTOPERATIVE DIAGNOSIS: 1. Evidence of prior colon resection. 2. Diverticulosis. 3. Internal hemorrhoids. PROCEDURE: 1. Colonoscopy. SURGEON: Hua Paul MD. COMPLICATIONS: None apparent. BLOOD LOSS: None. MEDICATIONS: Monitored anesthesia care. DESCRIPTION OF PROCEDURE: Informed consent was obtained prior to sedation. The preprocedure cardiopulmonary assessment was satisfactory. The patient was placed in the left lateral decubitus position and was sedated. A digital rectal exam was unremarkable. The tip of the Olympus colonoscope was inserted in the rectum and guided towards the cecum. There were some small stool balls seen in the left colon, perhaps associated with the diverticulosis. The patient had a prominent sigmoid and sigmoid colon diverticulosis. In the more proximal colon, there was some solid stool that I was able to suction away and irrigate the zhu of the colon to allow for good visualization. The patient has evidence of an ileocolonic anastomosis in the proximal transverse colon. The anastomosis is healthy in appearance. The distal neoterminal ileum was unremarkable. Retroflexed view there at the anastomosis was obtained of the proximal transverse colon. The rest of the colonic mucosa was examined and was unremarkable other than diverticula throughout the left colon and internal hemorrhoids that were found on retroflexed view. RECOMMENDATIONS: At 88, the patient does not need followup screening or surveillance. I would be happy to see him if he develops symptoms that need to be evaluated. #[id number] cc: Artemio Lara MD MTDD
[2019-04-15 12:41] VITALS: TEMP 97.5
[2019-04-15 12:43] VITALS: BP 135/69; O2SAT 98
== END 2019-04-15 11:20 | disposition home or self-care (01) ==
LOC: AMB 07:00
PROVIDERS: ATTEND Internal Medicine Gastroenterology
DX: Z08 Encounter for follow-up examination after completed treatment for malignant neoplasm (principal); K57.30 Diverticulosis of large intestine without perforation or abscess without bleeding; K59.01 Slow transit constipation; I10 Essential (primary) hypertension; Z85.038 Personal history of other malignant neoplasm of large intestine; Z79.82 Long term (current) use of aspirin; Z79.899 Other long term (current) drug therapy
CPT/HCPCS: 00811; 45378; J2250; J3490; J7120

== ENCOUNTER → 2019-04-23 | Outpatient (CLI) | payer MEDICARE, BC | LOC: GMAM 10:34 | PROVIDERS: ATTEND Family Medicine | DX: C18.9 Malignant neoplasm of colon, unspecified (principal); D64.9 Anemia, unspecified ==

== ENCOUNTER → 2019-06-12 | Outpatient (CLI) | payer MEDICARE, BC | LOC: GMAM 10:48 | PROVIDERS: ATTEND Family Medicine | DX: E53.8 Deficiency of other specified B group vitamins (principal); R53.83 Other fatigue; I10 Essential (primary) hypertension; E78.2 Mixed hyperlipidemia ==

== ENCOUNTER 2019-09-24 19:47 | Emergency (ER) | payer MEDICARE, BC ==
[2019-09-24 20:14] VITALS: TEMP 98.6
[2019-09-24] MEDS: SODIUM CHLORIDE 0.9% 1000ML 1,000 ML IVS PRN (20:51)
[2019-09-24] MEDS: SODIUM CHLORIDE 0.9% (FLUSH) 10 ML SYG IV PRN (20:54)
--- NOTE | 2019-09-24 21:24 | ED.PDOC ---
History of Present Illness - General Chief Complaint: GI Problem Stated Complaint: bleeding from rectum Time Seen by Provider: 09/24/19 20:46 Information Source: patient, RN notes reviewed, Vital Signs reviewed, family - Daughter Exam Limitations: no limitations - History of Present Illness Initial Comments: Patient presents with complaints of acute onset of rectal bleeding with no associated abdominal pain. Patient has a history of colon cancer. He had 18 inches of his small intestine/colon removed 3 years ago. Patient was concerned that this was a return of his colon cancer. The bleeding was painless. Dark red. Patient states that filled the bowl. Patient denies any headache, dizziness, blurry vision, chest pain, shortness of breath, nausea, vomiting, diarrhea. Patient denies any type of trauma. Nothing seems to bring on the bleeding or make it go away. There is no pain associated with the bleeding. Pain Radiation: no radiation Quality: other - No pain Timing/Duration: 1-3 hours Improving Factors: nothing Worsening Factors: nothing Associated Symptoms: denies symptoms Review of Systems - Review of Systems Constitutional: States: no symptoms reported, see HPI EENTM: States: no symptoms reported Respiratory: States: no symptoms reported Cardiology: States: no symptoms reported Gastrointestinal/Abdominal: States: see HPI, other - Rectal bleeding Genitourinary: States: no symptoms reported Musculoskeletal: States: no symptoms reported Skin: States: no symptoms reported Neurological: States: no symptoms reported Endocrine: States: no symptoms reported Hematologic/Lymphatic: States: no symptoms reported All other Systems: Reviewed and Negative Past Medical History (General) - Patient Medical History Hx Hypertension: Yes Hx Gastroesophageal Reflux: Yes Hx Cancer: Yes - CA Surgical History: appendectomy, cancer surgery, cholecystectomy, other - Vaccination History Hx Tetanus, Diphtheria Vaccination: No Hx Influenza Vaccination: Yes Hx Pneumococcal Vaccination: Yes Family Medical History - Family History Mother Hx Cardiac Disease: Yes Physical Exam - Physical Exam General Appearance: Alert, Comfortable, Obese, Well Developed, Well Groomed, Well Hydrated, Well Nourished Eyes, Ears, Nose, Throat Exam: PERRL/EOMI, normal ENT inspection, pharynx normal Neck: non-tender, full range of motion, supple, normal inspection Respiratory: chest non-tender, lungs clear, normal breath sounds, no respiratory distress, no accessory muscle use Cardiovascular/Chest: normal peripheral pulses, regular rate, rhythm, no edema, no gallop, no JVD, no murmur Peripheral Pulses: No deficit Gastrointestinal/Abdominal: normal bowel sounds, non tender, soft, no organomegaly, no pulsatile mass Back Exam: normal inspection, no CVA tenderness, no vertebral tenderness Extremity: normal range of motion, non-tender, normal inspection, no pedal edema 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 09/24/19 22:51 Patient's labs are unremarkable. His CT scan does not show any acute disease. Patient with probable uncomplicated rectal bleeding. Plan on discharge home. I have discussed this plan with the daughter and the patient and they voiced understanding and agreement. They plan on seeing their GI doctor tomorrow in [place]. Marc Jones M.D. #[id number] - Results/Orders Results/Orders: EXAM: Abdomen/Pelvis w/Contrast CLINICAL INDICATION: Abdominal pain. COMPARISON: There is no previous study for comparison. TECHNIQUE: The CT scan was done using contiguous axial 5 mm postcontrast sections through the abdomen and pelvis including IV contrast. This exam was performed according to our departmental dose-optimization program, which includes automated exposure control, adjustment of the mA and/or kV according to patient size and/or use of iterative reconstruction technique. FINDINGS: The visualized portions of the lung bases contain areas of subsegmental atelectasis but are otherwise clear. There is a moderate-sized hiatal hernia. The liver contains a few simple cysts the largest measuring 2.9 x 2.6 cm, in the right lobe. The liver is otherwise unremarkable. A simple cyst is noted protruding from the lateral aspect of the left kidney measuring 4.3 x 3.0 cm. The adrenal glands and kidneys are otherwise unremarkable. The spleen and pancreas are unremarkable. The gallbladder is surgically absent. The aorta contains atherosclerotic calcifications with no evidence of aneurysm. There is diverticulosis of the colon without findings of acute diverticulitis. A right hip arthroplasty is noted. The prostate gland is mildly enlarged. No dilated loops of small bowel are identified. There is no free air, free fluid, or abscess. No obvious cause of rectal bleeding is identified. IMPRESSION: 1. No evidence of an acute intra-abdominal process. 2. Diverticulosis. 3. Hiatal hernia. 4. Mildly enlarged prostate gland. Electronically signed by: Esa Evans MD 09/24/2019 9:51 PM DAMASCENER 09/24/19 20:46 Hold Metformin x 48Hrs [id number] IV Care:Saline Lock per Protoc QSHIFT Sodium Chloride 0.9% (Flush) [Saline Flush Syringe] 10 ml IV PRN PRN Sodium Chloride 0.9% 1000ML [Ns 1000 ml] 1,000 ml IVS .QD 09/24/19 22:07 URINALYSIS Stat Laboratory Results - last 24 hr 09/24/19 09/24/19 20:40 20:40 WBC 5.8 RBC 4.18 L Hgb 13.6 L Hct 40.0 L MCV 95.7 H MCH 32.6 H MCHC 34.1 RDW 14.1 Plt Count 163 MPV 7.6 Absolute Neuts (auto) 3.50 Absolute Lymphs (auto) 1.60 Absolute Monos (auto) 0.60 Absolute Eos (auto) 0.10 Absolute Basos (auto) 0.00 Neutrophils % 60.3 Lymphocytes % 26.6 Monocytes % 10.0 H Eosinophils % 2.3 Basophils % 0.8 Sodium 139 Potassium 4.0 Chloride 105 Carbon Dioxide 26 Anion Gap 12.0 BUN 19 H Creatinine 1.11 BUN/Creatinine Ratio 17.1 Random Glucose 147 H Serum Osmolality 282.5 Calcium 9.3 Total Bilirubin 0.8 Direct Bilirubin 0.2 Indirect Bilirubin 0.6 AST 26 ALT 18 Alkaline Phosphatase 70 Serum Total Protein 6.8 Albumin 3.8 Lipase 41 Departure - Departure Clinical Impression: Rectal bleeding Time of Disposition: 22:53 Disposition: Discharge to Home or Self Care Condition: Good Departure Forms: ED Discharge - Pt. Copy, Patient Portal Self Enrollment Instructions: Bloody Stools, Adult (DC), DI for Gastrointestinal Bleeding Referrals: Artemio Lara MD [Primary Care Provider] - 1-2 Days
--- NOTE | 2019-09-24 21:52 | CT ---
EXAM: Abdomen/Pelvis w/Contrast CLINICAL INDICATION: Abdominal pain. COMPARISON: There is no previous study for comparison. TECHNIQUE: The CT scan was done using contiguous axial 5 mm postcontrast sections through the abdomen and pelvis including IV contrast. This exam was performed according to our departmental dose-optimization program, which includes automated exposure control, adjustment of the mA and/or kV according to patient size and/or use of iterative reconstruction technique. FINDINGS: The visualized portions of the lung bases contain areas of subsegmental atelectasis but are otherwise clear. There is a moderate-sized hiatal hernia. The liver contains a few simple cysts the largest measuring 2.9 x 2.6 cm, in the right lobe. The liver is otherwise unremarkable. A simple cyst is noted protruding from the lateral aspect of the left kidney measuring 4.3 x 3.0 cm. The adrenal glands and kidneys are otherwise unremarkable. The spleen and pancreas are unremarkable. The gallbladder is surgically absent. The aorta contains atherosclerotic calcifications with no evidence of aneurysm. There is diverticulosis of the colon without findings of acute diverticulitis. A right hip arthroplasty is noted. The prostate gland is mildly enlarged. No dilated loops of small bowel are identified. There is no free air, free fluid, or abscess. No obvious cause of rectal bleeding is identified. IMPRESSION: 1. No evidence of an acute intra-abdominal process. 2. Diverticulosis. 3. Hiatal hernia. 4. Mildly enlarged prostate gland. Electronically signed by: Esa Evans MD 09/24/2019 9:51 PM MANUAL MACHINIST
[2019-09-24 22:06] VITALS: O2SAT 96
[2019-09-24 23:12] VITALS: BP 137/75
== END 2019-09-24 23:12 | disposition home or self-care (01) ==
LOC: ER 19:47 → MERGE 19:47 → ER 23:12
DX: K62.5 Hemorrhage of anus and rectum (principal); K57.30 Diverticulosis of large intestine without perforation or abscess without bleeding; K44.9 Diaphragmatic hernia without obstruction or gangrene; K21.9 Gastro-esophageal reflux disease without esophagitis; I10 Essential (primary) hypertension; E66.9 Obesity, unspecified; Z85.038 Personal history of other malignant neoplasm of large intestine; Z90.49 Acquired absence of other specified parts of digestive tract; Z68.29 Body mass index [BMI] 29.0-29.9, adult
CPT/HCPCS: 74177; 80048; 80076; 81001; 83690; 85025; J7030

== ENCOUNTER → 2019-09-28 | Outpatient (CLI) | payer MEDICARE, BC | LOC: GMAM 14:22 | PROVIDERS: ATTEND Family Medicine | DX: K92.1 Melena (principal) ==

== ENCOUNTER → 2019-10-22 | Outpatient (CLI) | payer MEDICARE, BC | LOC: GMAM 10:27 | PROVIDERS: ATTEND Family Medicine | DX: C18.9 Malignant neoplasm of colon, unspecified (principal) ==